=== PATIENT | male | born 2005 | race Caucasian/White ===

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

== ENCOUNTER 2025-04-06 17:09 | Emergency (ER) | payer SELFPAY ==
--- NOTE | 2025-04-06 17:06 | ECG_ITS ---
APPROVED REPORT Exam: Resting ECG HR:94 bpm ECG Measurements Heart Rate 94 AXES [place] 140 P 70 QRSd 88 QRS 83 QT 326 T 44 QTc 378 Conclusion SINUS RHYTHM POSSIBLE LEFT ATRIAL ENLARGEMENT [-0.1mV P-WAVE IN V1/V2] BORDERLINE ECG UNCONFIRMED REPORT Normal sinus rhythm. No ST elevation or depression. Electronically signed by : JENISE RODRIGUEZ, 04/07/2025 14:50:26
--- NOTE | 2025-04-06 17:13 | XR_ITS ---
FINAL REPORT CLINICAL HISTORY: SOB/CP COMPARISON: None FINDINGS: A single view of the chest was obtained. The heart size is normal. The mediastinum is normal. There is no focal infiltrate or edema. There are no pleural effusions. There is no pneumothorax. There is no osseous abnormality. IMPRESSION: No acute cardiopulmonary process. Reviewed, Interpreted and Dictated by Joe Maldonado MD Transcribed by Fabiana Warner Authenticated and [facility]
--- OUTSIDE RECORDS SUMMARY | 2025-04-06 17:13 | XMS_ITS | Encounter Summary ---
Author Organization [facility] Address [address] [place] [address] Care Team Providers Care Instructor Of Nursing Name Role Phone Shimon Joseph D.O. Primary Care Provider [phone]- [phone] Reason for Visit * Reason Onset Date Comments Results 07/03/2016 labs and urine Encounter Details Date Type Department Care Team (Late st Contact Info) Description 07/03/2016 Telephone [facility] Division of Pediatric Urology [address] [place] [phone] Magda Swartz R.N. Results (labs and urine) Social History Tobacco Use Types Packs/Day Years Used Date Smoking Tobacco: Never Alcohol Use Standard Drinks/Week Comments No 0 (1 standard drink = 0.6 oz pur e alcohol) Sex and Gender Information Value Date Recorded Sex Assigned at Not on file Legal Sex Male 5:34 AM EST Gender Identity Not on file Sexual Orientation Not on file documented as of this encounter Miscellaneous Notes * Telephone Encounter - Mari Rodriguez R.N. - 07/04/2016 1:33 PM EST Reviewed PNP message with mom . Mom will call back tomorrow for further results * Telephone Encounter - Rula Block RN, EMPLOYMENT TRAINING SPECIALIST - 07/04/2016 12:46 PM EST Cystatin C normal - UC still in process; will have Dr Karimi review microalbumin, creatinine and protein/creatinine random values for any further testing needed. * Telephone Encounter - Mari Rodriguez R.N. - 07/04/2016 12:35 PM EST Calling for urine and blood results. Will send to [facility] for review * Telephone Encounter - Mari Rodriguez R.N. - 07/04/2016 12:35 PM EST ----- Message from Quyen Monaco sent at 07/04/2016 11:26 AM EST ----- Contact: Amanda (mom) [phone] Patient of Scott, had blood work and urine tests done yesterday, needs to get results * Telephone Encounter - Adelita Ordoñez R.N. - 07/04/2016 11:06 AM EST Urine culture remains in process * Telephone Encounter - Magda Swartz R.N. - 07/03/2016 1:30 PM EST Reviewed normal ua result with mom. Awaiting final results. documented in this encounter Plan of Treatment Not on file documented as of this encounter Visit Diagnoses Not on filedocumented in this encounter Care Teams Instructor Of Nursing Relationship Specialty Start Date End [place] [address] PCP - General External Family Practice 06/08/21 documented as of this encounter
--- OUTSIDE RECORDS SUMMARY | 2025-04-06 17:13 | XMS_ITS | Clinical Summary ---
Author Organization [facility] Address [address] [place] [address] Care Team Providers Care Motion Picture Critic Name Role Phone Shimon Joseph D.O. Primary Care Provider [phone]- [phone] Source Comments [facility] is fully rolled out with thefollowing exceptions:[facility] Allergies No known active allergies Medications montelukast (SINGULAIR) 10 MG tablet Take 1 Tab by mouth every 24 hours. Active raNITIdine (ZANTAC) 15 MG/ML syrupIndication s:Congenital ureterocele,Sharmin itary kidney 5 mL 2 times a day. Active cetirizine (ZyrTEC) 10 MG tabletIndicatio ns:Congenital ureterocele,Sharmin itary kidney,Periumbi lical abdominal pain Take 10 mg by mouth. 10/17/2016 Active lisinopril (PRINIVIL) 10 MG tablet Take 10 mg by mouth. 09/17/2019 Active hyoscyamine (LEVSIN SL) 0.125 MG sublingual tabletIndicatio ns:Epigastric pain Place 1 Tab (0.125 mg total) under the tongue every 4-6 hours as needed for cramping or see PRN comment (for pain). 30 Tab 2 10/27/2019 Active omeprazole (PriLOSEC) 40 MG delayed release capsule Take 1 Cap (40 mg total) by mouth 1 time a day. Granules should not be chewed or crushed. 30 Cap 3 10/27/2019 Active polyethylene glycol 3350 (MIRALAX) powder Take 1 Cap (17 gm total) by mouth every 24 hours. 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 Immunizations Immunization Administration Dates Next Due Influenza A (H1N1) Vaccine Nasal 05/04/2010 Influenza Vaccine 0.5 mL - f or patients 6 months and older 06/30/2019 Family History Medical History Relation Name Comments Stomach Ulcer Father Other Maternal Aunt Asthma Maternal Grandfather Anesth Problems Maternal Grandmother Cancer Maternal Grandmother Diabetes Maternal Grandmother Gastroesophageal reflux Maternal Grandmother Stomach Ulcer Maternal Grandmother Other Maternal Uncle 1 solitary ki dney Cancer Maternal Uncle 2 Abdominal Surgery in Childhood Mother Gastroesophageal reflux Mother Inflammatory Bowel Disease Mother Intestinal Polyps Mother Irritable Bowel Syndrome Mother Stomach Ulcer Mother Anemia Other cousin Asthma Paternal Grandfather Cancer Paternal Grandfather Liver Disease Paternal Grandfather Cancer Paternal Grandmother Diabetes Paternal Grandmother Relation Name Status Comments Father Maternal Aunt Maternal Grandfather Maternal Grandmother Maternal Uncle 1 Alive Maternal Uncle 2 Alive Mother Other Paternal Grandfather Paternal Grandmother Social History Tobacco Use Types Packs/Day Years Used Date Smoking Tobacco: Never Smokeless Tobacco: Never Alcohol Use Standard Drinks/Week Comments No 0 (1 standard drink = 0.6 oz pur e alcohol) Intimate Partner Violence Answer Date R ecorded If you are in a relationship , do you feel safe in that relationship? Yes 10/27/2019 Safe in relationship? (18 and older) Not on file 10/27/2019 Safety and Environment Answer Date Paxton rded Do you have any concerns of physical abuse, sexual abuse, or neglect of your child? No 10/27/2019 Is an adult hurting you or your family? No 10/27/2019 Has someone ever touched you in a sexual way that was not ok with you? No 10/27/2019 Someone hurting you or family (18 and older) Not on file 10/27/2019 Historical abuse worry Not on file 0 If you have firearms in the home, are they all in locked storage AND unloaded? Not on file 10/27/2019 Sex and Gender Information Value Date Recorded Sex Assigned at Not on file Legal Sex Male 5:34 AM EST Gender Identity Not on file Sexual Orientation Not on file Last Filed Vital Signs Vital Sign Reading Time Taken Comments Blood Pressure 131/58 10/27/2019 1:56 PM EDT Pulse 100 10/27/2019 1:56 PM EDT Temperature 36.9 C (98.4 F) 04/11/2019 12:34 PM EDT Respiratory Rate 22 04/11/2019 12:34 PM EDT Oxygen Saturation - - Inhaled Oxygen Concentration - - Weight 54.1 kg (119 lb 4.3 oz) 10/27/2019 1:56 P M EDT Height 156.5 cm (5' 1.61 ) 10/27/2019 1:56 PM ED T Body Mass Index 22.09 10/27/2019 1:56 PM EDT Plan of Treatment Health Maintenance Due Date Last Done Comments MENINGOCOCCAL B VACCINE (2 of 2 - Trumenba SCDM 2-dose series) 05/19/2021 11/16/2020 COVID-19 Vaccine ( season) 2024 AMB SEASONAL FLU VACCINE (#1) 06/20/2025 05/17/2021, 06/30/2019, 04/15/2019, Additional history exists DTAP/Tdap/Td IMMUNIZATION (7 - Td or Tdap) 02/24/2026 02/25/2016, 06/16/2015, 08/23/2005, Additional history exists PNEUMOCOCCAL IMMUNIZATION Aged Out 2004, 2004, 2004, Additional history exists No longer eligible based on patient's age to complete this topic HIB IMMUNIZATION Completed 08/23/2005, 05/2005, 2004, Additional history exists HPV IMMUNIZATION Completed 01/08/2018, 02/25/2016 HEPATITIS A IMMUN (OPTIONAL 2-17 YRS) Discontinued 07/29/2018, 01/08/2018 HEPATITIS B IMMUNIZATION Completed 018, 2004, 2004, Additional history exists IPV IMMUNIZATION Completed 07/29/2018, 05/2005, 2004, Additional history exists MMR IMMUNIZATION Completed 07/29/2018, 08/23/2005 VARICELLA IMMUNIZATION Completed 07/29/2018, 2004 MCV4 IMMUNIZATION Completed 11/16/2020, , 06/16/2015 Respiratory Syncytial Virus (RSV) <20mo Aged Out No longer eligible based on patient's age to complete this topic [facility] Care Teams Motion Picture Critic Relationship Specialty Start Date End Date Shimon Joseph D.O. [address] [address] PCP - General External Family Practice 06/08/21
--- NOTE | 2025-04-06 17:15 | ED_ITS ---
<Statement entered by Jacky Ledezma MD - 04/07/25 14:40> I was consulted by the LORETTA, and we discussed the complexity of the problems being addressed. I approve the treatment and management plan for this patient's care in the emergency department, thus performing a substantive portion of the medical decision making. Jacky Ledezma MD Discharge Plan Disposition Patient Disposition: Home, Self-Care Condition: Good Prescriptions Prescriptions: No Action ondansetron 4 mg tablet,disintegrating 4 mg PO Q8H PRN (Reason: nausea and vomiting) Qty: 10 0RF Referrals Follow up/Referrals: Shimon Joseph [Primary Care Provider, Medical] - See instructions Ottoniel Martinez DO [Staff Physician, Family Practice] - See instructions Activity Restrictions/Add. Instructions Additional Instructions/Restrictions: Please follow-up with your PCP in the upcoming days/weeks, please return to the emergency room with any worsening signs or symptoms, to include worsening shortness of breath, worsening chest pain, please utilize ibuprofen and Tylenol as needed for your symptoms. Clinical Impressions Clinical Impression: Atypical chest pain Stand Alone Forms Stand Alone Forms: Work/School Release Instructions Patient Instructions: DI for Atypical Chest Pain Print Language Print Language: Yakut Discharge ED Provider: Jacky Ledezma General Adult HPI General Chief complaint: Chest Pain Stated complaint: Chest Pain Time Seen by Provider: 04/06/25 17:11 Mode of Arrival: Ambulatory Source of Information: Patient Limitations: No Limitations History of Present Illness HPI narrative: 19-year-old male presents emergency department with right-sided substernal chest pain with some radiation into his right arm he endorses numbness and tingling , to the right arm, pain started around 2 hours ago while the patient was at work , patient states he was exerting himself, he states he was lifting boxes , as patient works at [employer]. Patient describes his initial chest pain episode as a 6 out of 10, currently a 4 out of 10, denies any fever chills cough congestion, does state that he recently got over a sinus infection , denies any shortness of breath, denies abdominal pain nausea vomiting constipation diarrhea, no urinary type otology, patient denies any alcohol tobacco or drug use, initial triage vitals are grossly unremarkable. Patient has no other real relevant past medical history takes no other medications at home. Please note that above description of symptoms, in this electronic medical record under categorization of recalled from ER triage doctor by RN are reflective of an initial nursing assessment, however, is not reflective of my full history and physical exam that was personally taken and clarified. Consequentially, this preceding description of symptoms, which may include the patient's categorized chief complaint in the EMR, do not reflect my personal clinical impression, and the ultimate description of history of present illness and patient stated complaints should be deferred to this section of the note. Unless stated otherwise or congruent with this section of the note, additional signs, symptoms, or incongruence should be interpreted as inaccurate with my clinical impression. Onset (ago): hour(s) Related Data Previous Rx's ?Medication ?Instructions ?Recorded ondansetron 4 mg disintegrating 4 mg PO Q8H PRN nausea and 11/08/24 tablet vomiting #10 tabs Allergies Allergy/AdvReac Type Severity Reaction Status Date / Time prednisone Allergy Verified 11/08/24 18:10 [facility] Disclaimer: The information contained in this section may have been updated after the patient was seen, as this information can be updated by other users. Medical History (Updated 04/06/25 @ 21:04 by LY Puga) Atypical chest pain Abdominal pain Chest pain Surgical History No significant past surgical history Family History Family/Other No significant family history Social History Smoking Status: Never smoker alcohol intake: never current occupational status: employed Travel in the last 8 weeks?: None Have you lived/traveled outside [place] in past 30 days?: No Contact w/someone who lives/traveled outside US past 30 days?: No Exposure to someone with infectious disease in past 14 days?: No Do you have a fever (greater than 100.4 F or 38 C)?: No Have you tested positive for COVID-19?: No Exposed to someone with COVID-19 in past 14 days?: No Do you have a sore throat?: No Do you have a cough?: No Do you have any weakness?: No Do you have any diarrhea?: No Are you experiencing any unusual bleeding?: No Do you have any muscle aches/pain?: No Do you have any abdominal pain?: No Are you experiencing loss of taste or smell?: No Other Medical History Have you received the Flu Vaccine for this season: No Have you received the Pneumonia Vaccine: No ROS Obtained: Yes All systems reviewed & no additional complaints except as documented Physical Exam General General appearance: alert and in no apparent distress Head Head exam: atraumatic and normocephalic Eye Eye exam: Present PERRL and EOMI ENT ENT exam: Present mucous membranes moist Neck Neck exam: Present normal inspection Chest Chest inspection: Present normal inspection and symmetric chest wall rise; Absent tenderness Respiratory Respiratory exam: Present normal lung sounds bilaterally; Absent respiratory distress Cardiovascular Cardiovascular exam: Present regular rate and normal rhythm Abdominal Exam Abdominal exam: Present soft; Absent tenderness, guarding, rebound or rigidity Extremities Exam Extremities exam: Present normal inspection Neurological Exam Neurological exam: Present alert and oriented X3 Psychiatric Psychiatric exam: Present normal affect Skin Skin exam: Present warm and dry Medical Decision Making Medical Records Medical records reviewed: Yes I reviewed the patient's medical records. Screening: Per USPSTF and CDC recommendations, given the prevalence of disease in our region, it is our hospital?s policy to screen for HIV and viral Hepatitis for all patients aged 18 and over and those with ongoing risk factors. Jerome Inquiry Pt receiving controlled substance: No Jerome was queried for this patient: No Vital Signs: 04/06/25 17:18 04/06/25 17:18 Temperature 98.9 F 98.9 F Temperature Source Oral Pulse Rate 87 Pulse Rate [Right] 87 Respiratory Rate 18 18 Blood Pressure 102/72 L Blood Pressure [Right Arm] 102/72 L Blood Pressure Mean [Right Arm] 82 02 Sat by Pulse Oximetry 98 98 Oxygen Delivery Method Room Air Lab Data Lab results reviewed: Yes I reviewed the patient's lab results. Lab Results 04/06/25 17:25: WBC 15.2 H, RBC 4.95, Hgb 14.3, Hct 41.2 L, MCV 83.2, MCH 28.9, MCHC 34.7, RDW 12.4, Plt Count 282, MPV 10.1, Neut % (Auto) 81.5 H, Lymph % (Auto) 11.2, Heard % (Auto) 6.6, Eos % (Auto) 0.1, Baso % (Auto) 0.3, Neut # (Auto) 12.4 H, Lymph # (Auto) 1.7, Heard # (Auto) 1.0, Eos # (Auto) 0.0, Baso # (Auto) 0.0, PT 10.7, INR 0.96, D-Dimer 0.80 H, Sodium 138, Potassium 3.5, Chloride 103, Carbon Dioxide 25, Anion Gap 13.5, BUN 11, Creatinine 0.90, Estimated Creat Clear 105, Estimated GFR 108, Est GFR ( Amer) 130, G lucose 101 H, Calcium 9.4, Total Bilirubin 0.5, AST 35, ALT 31, Alkaline Phosphatase 58, Troponin I < 0.01, NT-Pro-B Natriuret Pep 43.0, Total Protein 8.3 H, Albumin 5.1 H, Globulin 3.2, Albumin/Globulin Ratio 1.6, Lipase 28 04/06/25 20:15: Troponin I < 0.01 04/06/25 17:25 04/06/25 17:25 Orders (Tests/Meds): ED MEDICATIONS Discontinued Medications Generic Name Dose Route Start Last Admin Trade Name Gioq PRN Reason Stop Dose Admin Aspirin 325 mg 04/06/25 17:16 04/06/25 18:30 Aspirin 325mg Tablet PO 04/06/25 17:17 325 mg ONCE ONE Administration Diphenhydramine HCl 25 mg 04/06/25 18:51 04/06/25 18:53 Diphenhydramine 50mg/Ml Vial IV 04/06/25 18:52 25 mg ONCE ONE Administration Morphine Sulfate 2 mg 04/06/25 17:25 04/06/25 18:30 Morphine 2mg/Ml Syringe IV 04/06/25 17:26 2 mg ONCE ONE Administration Ondansetron HCl 4 mg 04/06/25 17:26 04/06/25 18:30 Ondansetron 4mg/2ml Vial IV 04/06/25 17:27 4 mg ONCE ONE Administration ORDERS Category Date Time Status XR chest portable Stat Exams 04/06/25 17:13 Taken Complete Blood Count Auto Diff Stat Lab 04/06/25 17:25 Completed Comprehensive Metabolic Panel Stat Lab 04/06/25 17:25 Completed D-Dimer Stat Lab 04/06/25 17:25 Completed Lipase Stat Lab 04/06/25 17:25 Completed NT Pro Brain Natriuretic Pep. Stat Lab 04/06/25 17:25 Completed PT INR [Prothrombin Time INR] Stat Lab 04/06/25 17:25 Completed Troponin I Q3H Lab 04/06/25 20:15 Completed Troponin I Q3H Lab 04/06/25 23:15 Ordered Troponin I Stat Lab 04/06/25 17:25 Completed Medical Decision Narrative: 19-year-old male presents emergency room with chest pain, differential diagnose include but not limited to, ACS, cardiac arrhythmia, electrolyte disturbance, costochondritis, pneumonia, pneumothorax, other musculoskeletal chest pain, PE, among others. I discussed the patient case with the attending physician Dr. Ledezma Will obtain basic laboratory studies, D-dimer, lipase, proBNP, PT/INR, troponin, chest x-ray and EKG, will give 325 mg p.o. aspirin, will give 2 mg IV morphine for pain and 4 mg of Zofran nausea. CMP unremarkable, lipase in normal limits CBC is notable for mild leukocytosis of 15.2 otherwise unremarkable PT INR within normal limits Initial troponin is less than 0.01/within normal limits Of note, I was notified by nursing staff after patient received IV morphine 2 mg, he did develop somewhat of a rash that was blanchable at the bedside around his right arm/IV insertion site, patient does not have documented allergy to any medications, except for prednisone, will give the patient IV Benadryl 25 mg. D-dimer is mildly elevated at 0.8,, however utilizing years criteria, PE is excluded. Repeat troponin is less than 0.01. Reexamination of the patient at approximately 8:55 PM, patient is resting comfortably in bed, was sleeping after Benadryl administration, rash is improved, chest pain is improved 0 out of 10 chest pain, heart score of 0, patient is clear to be discharged home to self-care, could be costochondral, versus other atypical chest pain, troponins are negative, white count could be due to with the patient's chest pain, or recovering from sinus infection/URI, patient, I along with the attending physician reviewed and independently interpreted the patient's chest x-ray, no acute cardiopulmonary findings. Patient given strict ED return precautions with follow-up with PCP in the upcoming days. Patient voiced understanding agree with the current plan/discharge plan. Critical Care Critical Care Time Critical Care Time: No
[2025-04-06 17:18] VITALS: BP 102/72; PULSE 87; RESP 18; TEMP 37.2; O2SAT 98; BMI 21.4
[2025-04-06 17:33] LABS: Hematocrit 41.2 % (42.0-52.0); Hemoglobin 14.3 g/dL (14.1-18.0); Immature Granulocytes % 0.3 %; Mean Corpuscular HGB Conc 34.7 g/dL (31.8-35.4); Mean Corpuscular Hemoglobin 28.9 pg (27.0-31.2); Mean Corpuscular Volume 83.2 fl (80-94); Nucleated Red Blood Cells % 0 %; Platelet Count 282 K/mm3 (142-424); Red Blood Count 4.95 M/mm3 (4.60-6.20); Red Cell Distribution Width-SD 38.0 fL; White Blood Count 15.2 K/mm3 (4.5-13.0)
[2025-04-06 17:40] LABS: Albumin Level 5.1 g/dl (3.5-5.0); Chloride 103 mmol/L (98-107); Potassium 3.5 mmoL/L (3.5-5.1); Sodium 138 mmol/L (136-145)
[2025-04-06 17:42] LABS: Alanine Aminotransferase 31 U/L (12-78); Albumin/Globulin Ratio 1.6 (1.1-1.8); Alkaline Phosphatase 58 U/L (38-126); Anion Gap 13.5 mEq/L (5-15); Aspartate Amino Transferase 35 U/L (17-59); Bilirubin,Total 0.5 mg/dl (0.2-1.3); Blood Urea Nitrogen 11 mg/dl (9-20); Carbon Dioxide 25 mmol/L (22.0-30.0); Creatinine Clearance Estimated 105 mL/min (50-200); Creatinine,Serum 0.90 mg/dl (0.66-1.25); Estimated Glomerular Filt Rate 108 ml/min (>60); GFR (African American) 130 ML/MIN (>60); Globulin 3.2 g/dL (1.3-3.2); Total Protein,Serum 8.3 g/dl (6.3-8.2)
[2025-04-06 17:43] LABS: Calcium 9.4 mg/dl (8.4-10.2); Glucose 101 mg/dl (74-100); Lipase 28 U/L (23-300)
[2025-04-06 17:52] LABS: NT Pro Brain Natriuretic Pep. 43.0 pg/mL (0-125)
[2025-04-06 18:10] LABS: INR 0.96 (0.9-1.1); Prothrombin Time 10.7 seconds (10.1-12.5)
[2025-04-06 18:12] LABS: Troponin I < 0.01 ng/ml (0.00-0.034)
[2025-04-06] MEDS: ONDANSETRON 4MG/2ML VIAL 4 MG IV (18:30)
[2025-04-06] MEDS: MORPHINE 2MG/ML SYRINGE 2 MG IV (18:30)
[2025-04-06] MEDS: ASPIRIN 325MG TABLET 325 MG PO (18:30)
[2025-04-06 18:59] LABS: D-Dimer 0.80 ug/mL (0.0-0.5)
[2025-04-06 20:50] LABS: Troponin I < 0.01 ng/ml (0.00-0.034)
[2025-04-06 21:08] VITALS: BP 102/72; PULSE 87; RESP 20; TEMP 36.7; O2SAT 98
== END 2025-04-06 21:09 | disposition home or self-care (01) ==
PROVIDERS: Physician Assistant; Emergency Provider Student in an Organized Health Care Education/Training Program; PCP Family Medicine
DX: R07.9 Chest pain, unspecified (principal); R20.2 Paresthesia of skin
CPT/HCPCS: 71045; 80053; 83690; 83880; 84484; 85025; 85378; 85610; 93005; 96374; 96375; 99283; 99285; J1200; J2270; J2405

== ENCOUNTER 2025-04-09 22:47 | Emergency (ER) | payer SELFPAY ==
[2025-04-09 22:55] VITALS: BP 128/77; PULSE 89; RESP 18; TEMP 36.7; O2SAT 99; BMI 21.4
--- OUTSIDE RECORDS SUMMARY | 2025-04-09 22:55 | XMS_ITS | Clinical Summary ---
Author Organization [facility] Address [address] [place] [address] Phone Care Team Providers Care Spring Tier Name Role Phone Unavailable Primary Care Provider Unavailabl e Allergies No known active allergies Medications montelukast (SINGULAIR) 5 mg Oral Tablet, ChewableIndicati ons:Allergic dermatitis Take 1 Tab by mouth every evening. 30 Tab 5 1 Active Additional Information Patient not taking.Reported on 06/14/2024 cetirizine (ZYRTEC) 10 mg Oral TabletIndication s:Allergic dermatitis Take 1 Tab by mouth daily. 30 Tab 5 1 Active Additional Information Patient not taking.Reported on 06/14/2024 omeprazole (PRILOSEC) 20 mg Oral Capsule, Delayed Release(E.C.)Ind ications:Gastroe sophageal reflux disease, unspecified whether esophagitis present Take 1 Capsule by mouth daily. 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 Immunizations Immunization Administration Dates Next Due DTaP 08/23/2005, 5,2004,07/22 DTaP, Unspecified Formulation 08/23/2005, 005 DTaP/Hep B/IPV 2004,2004 HPV 9 Valent 01/08/2018,02/25/2016,02/25/2016 Hepatitis A, Ped/Adol, 2 Dose 07/29/2018, 018 Hepatitis B, Ped/Adol 07/29/2018 Hepatitis B, Unspecified Formulation 2004, 2004 HiB (PRP-OMP) 08/23/2005,2004,2004 HiB, Unspecified Formulation 08/23/2005, 2004,2004,07/22 IPV 07/29/2018, 5,2004,07/22 Influenza Patient Reported 05/04/2010 Influenza Vaccine Quadrivalent 05/13/2018,2014 Influenza Vaccine Quadrivalent PF 05/17/2021 LAST MANUFACTURED 2011-Pneum ococcal Conjugate 7 Valent 05/31/2005,05/31/2005,2004,12/27,2004,2004,2004 ,2004 MMR 08/23/2005 MMRV 07/29/2018 Meningococcal B, Recombinant 11/16/2020 Meningococcal Conjugate 11/16/2020,02/25/2016, Meningococcal MCV4, Unspecif ied Formulation 02/25/2016 Tdap 02/25/2016,06/16/2015 Varicella 05/31/2005 Surgical History Surgery Date Site/Laterality Comments TONSILLECTOMY ADENOIDECTOMY TYMPANOSTOMY TUBE PLACEMENT DENTAL SURGERY Medical History Medical History Date Comments Congenital absence of right kidney 2015 Family History Medical History Relation Name Comments Heart Disease Father Mental Illness Father Cancer Maternal Grandfather Heart Disease Maternal Grandfather Cancer Maternal Grandmother Hearing Loss Maternal Grandmother Heart Disease Maternal Grandmother Migraines Maternal Grandmother Allergies Mother Anxiety Disorder Mother Migraines Mother Cancer Paternal Grandfather Heart Disease Paternal Grandfather Cancer Paternal Grandmother Heart Disease Paternal Grandmother Thyroid Disease Paternal Grandmother Allergies Sister Hearing Loss Sister Bleeding Prob Neg Hx Relation Name Status Comments Father Alive Maternal Grandfather Maternal Grandmother Mother Alive Paternal Grandfather Paternal Grandmother Sister Social History Tobacco Use Types Packs/Day Years Used Date Smoking Tobacco: Never Smokeless Tobacco: Never Tobacco Cessation:Counseling Given: No Alcohol Use Standard Drinks/Week Comments Not Asked 0 (1 standard drink = 0.6 oz pur e alcohol) PHQ-2 Answer Date Recorded PHQ-2 Score 0 09/24/2019 Sex and Gender Information Value Date Recorded Sex Assigned at Not on file Legal Sex Male 9:10 PM EDT Gender Identity Not on file Sexual Orientation Not on file Obstetrics History Last Filed Vital Signs Vital Sign Reading Time Taken Comments Blood Pressure 129/73 06/14/2024 11:15 AM EDT Pulse 78 06/14/2024 11:09 AM EDT Temperature 36.8 C (98.3 F) 06/14/2024 11:14 AM EDT Respiratory Rate 16 06/14/2024 11:09 AM EDT Oxygen Saturation 98% 06/14/2024 11:09 AM EDT Inhaled Oxygen Concentration - - Weight 58.5 kg (129 lb) 12/29/2021 10:15 AM EDT Height 162.6 cm (5' 4 ) 12/29/2021 10:15 AM EDT Body Mass Index 22.14 12/29/2021 10:15 AM EDT Plan of Treatment Health Maintenance Due Date Last Done Comments Annual Wellness Exam 2007 Meningococcal B Vaccine (2 of 2 - Trumenba SCDM 2-dose series) 05/19/2021 11/16/2020 COVID-19 Vaccine ( - season) 2024 Influenza Vaccine (#1) 2025 , 06/30/2019, 04/15/2019, Additional history exists DTaP/TDaP/Td (7 - Td or Tdap) 02/24/2026 02/25/2016, 06/16/2015, 08/23/2005, Additional history exists Pneumococcal Vaccine 0-49 Aged Out 2004, 05/31/2005, 2004, Additional history exists No longer eligible based on patient's age to complete this topic HPV Completed 01/08/2018, 03/2016, 02/25/2016 Hepatitis B Vaccine Completed 07/29/2018, 2004, 2004, Additional history exists Goals Goal Patient Goal Type Associated Problems Recent Progress Patient-Stated? Author Maintain a healthy diet, exercise regularly and maintain an ideal body weight General No Sue Goodman, A Insurance [facility] [address] [place] [address] [address] [facility] [address] [facility] [place] [address]
--- NOTE | 2025-04-09 23:07 | HMH.EDGENADL ---
Discharge Plan Disposition Patient Disposition: Home, Self-Care Condition: Good Prescriptions Prescriptions: New ondansetron 4 mg tablet,disintegrating 4 mg PO Q6H PRN (Reason: nausea and vomiting) Qty: 8 0RF guaifenesin 400 mg tablet 400 mg PO TID PRN (Reason: congestion, cough) Qty: 10 0RF No Action ondansetron 4 mg tablet,disintegrating 4 mg PO Q8H PRN (Reason: nausea and vomiting) Qty: 10 0RF Referrals Follow up/Referrals: Shimon Joseph [Primary Care Provider, Medical] - See instructions Activity Restrictions/Add. Instructions Additional Instructions/Restrictions: You were evaluated in the ER and are believed to be appropriate for discharge at this time. Take the prescribed guaifenesin as needed for cough. Take the prescribed ondansetron (Zofran) as needed for nausea and vomiting. Drink plenty of water, Gatorade, Pedialyte to maintain good hydration. Get extra sleep and rest and recover. For nasal congestion I recommend taking Claritin or Zyrtec [id number] medications for the next week to help reduce congestion and postnasal drip. Make an appointment with your primary care doctor for reevaluation in 2 to 3 days. Return to the ER with any new, worsening, or otherwise concerning symptoms. Clinical Impressions Clinical Impression: Cough, Nasal congestion, Post-tussive emesis Stand Alone Forms Stand Alone Forms: Work/School Release Instructions Patient Instructions: DI for Diarrhea and Traveler's Diarrhea -- Adult, DI for Diarrhea and Traveler's Diarrhea -- Child, DI for Nausea -- Adult, DI for Nausea -- Child Print Language Print Language: Martiniquais Discharge ED Provider: Bryon Starr General Adult HPI General Chief complaint: Nausea/Vomiting/Diarrhea Stated complaint: Vomiting,cough,stuffy nose Time Seen by Provider: 04/09/25 22:58 Mode of Arrival: Ambulatory Source of Information: Patient and Relative Description of Symptoms (Recalled from ER Triage Doc. by RN): PT presents to the ED for evaluation of cough, congestion, and N/V. PT stated he has had a cough since 04/06/2025. PT stated he has been vomiting every time he eats. Took Nyquil at 1300 on this date. History of Present Illness HPI narrative: 19-year-old male presents to the ER complaining of 3 days of congestion, cough, and posttussive emesis. He and family at bedside report that his symptoms started with congestion a few days ago and progressed to the cough and posttussive emesis that he presents with today. Patient took NyQuil earlier today to get some rest. He has been able to tolerate oral intake of fluids but has had emesis with eating and after coughing. He has no abdominal pain, diarrhea, constipation, chest pain, difficulty breathing, headache, dizziness, numbness, tingling, weakness, fever, or chills. He reports he does not want to be swabbed for COVID because every time he is swabbed his nose bleeds. He has not taken any medications for nausea. Related Data Previous Rx's ?Medication ?Instructions ?Recorded ondansetron 4 mg disintegrating 4 mg PO Q8H PRN nausea and 11/08/24 tablet vomiting #10 tabs guaifenesin 400 mg tablet 400 mg PO TID PRN congestion, 04/09/25 cough #10 tabs ondansetron 4 mg disintegrating 4 mg PO Q6H PRN nausea and 04/09/25 tablet vomiting #8 tabs Allergies Allergy/AdvReac Type Severity Reaction Status Date / Time prednisone Allergy Verified 11/08/24 18:10 [facility] Disclaimer: The information contained in this section may have been updated after the patient was seen, as this information can be updated by other users. Medical History (Updated 04/09/25 @ 23:04 by Bryon Starr MD) Atypical chest pain Abdominal pain Chest pain Surgical History No significant past surgical history Family History Family/Other No significant family history Social History Smoking Status: Never smoker alcohol intake: never current occupational status: employed Travel in the last 8 weeks?: None Have you lived/traveled outside [place] in past 30 days?: No Contact w/someone who lives/traveled outside [place] past 30 days?: No Exposure to someone with infectious disease in past 14 days?: No Do you have a fever (greater than 100.4 F or 38 C)?: No Have you tested positive for COVID-19?: No Exposed to someone with COVID-19 in past 14 days?: No Do you have a sore throat?: No Do you have a cough?: No Do you have any weakness?: No Do you have any diarrhea?: No Are you experiencing any unusual bleeding?: No Do you have any muscle aches/pain?: No Do you have any abdominal pain?: No Are you experiencing loss of taste or smell?: No Other Medical History Have you received the Flu Vaccine for this season: No Have you received the Pneumonia Vaccine: No ROS Obtained: Yes Systems reviewed as appropriate & no additional complaints except as documented Per HPI Physical Exam General General appearance: alert and in no apparent distress Head Head exam: atraumatic and normocephalic Eye Eye exam: Present PERRL and EOMI ENT ENT exam: Present mucous membranes moist and other (Mildly erythematous posterior oropharynx with no tonsillomegaly, no exudates, no lymphadenopathy) Neck Neck exam: Present normal inspection and full ROM; Absent lymphadenopathy Chest Chest inspection: Present symmetric chest wall rise Respiratory Respiratory exam: Present normal lung sounds bilaterally and other (Saturating 99% on room air); Absent respiratory distress, wheezes or stridor Cardiovascular Cardiovascular exam: Present regular rate and normal rhythm Abdominal Exam Abdominal exam: Present soft; Absent distention or tenderness Extremities Exam Extremities exam: Present full ROM Neurological Exam Neurological exam: Present alert and oriented X3; Absent motor sensory deficit Psychiatric Psychiatric exam: Present normal affect and normal mood Skin Skin exam: Present warm and dry Medical Decision Making Medical Records Medical records reviewed: Yes I reviewed the patient's medical records. Screening: Per USPSTF and CDC recommendations, given the prevalence of disease in our region, it is our hospital?s policy to screen for HIV and viral Hepatitis for all patients aged 18 and over and those with ongoing risk factors. Jerome Inquiry Pt receiving controlled substance: No Vital Signs: 04/09/25 22:55 Temperature 98.1 F Temperature Source Oral Pulse Rate [Right] 89 Respiratory Rate 18 Blood Pressure [Right Arm] 128/77 Blood Pressure Mean [Right Arm] 94 02 Sat by Pulse Oximetry 99 Oxygen Delivery Method Room Air Orders (Tests/Meds): ED MEDICATIONS Discontinued Medications Generic Name Dose Route Start Last Admin Trade Name Freq PRN Reason Stop Dose Admin Ondansetron HCl 4 mg 04/09/25 23:03 Ondansetron 4mg Odt SL 04/09/25 23:04 ONCE ONE ORDERS Category Date Time Status HIV Combo Stat Lab 04/09/25 22:59 Ordered Hepatitis C Ab Qual. W/ RFX Stat Lab 04/09/25 22:59 Ordered Medical Decision Narrative: In summary, otherwise healthy 19-year-old male presents to the ER with complaints of congestion, cough, posttussive emesis. Differential diagnosis includes but is not limited to viral syndrome, pharyngitis, posttussive emesis, postnasal drip, I considered the possibility of pneumonia though I have low suspicion for this since patient has no fever, chest pain, hypoxia, or difficulty breathing and has only been ill for the last few days. On initial evaluation patient is hemodynamically stable, afebrile, overall well-appearing, moist mucous membranes, no evidence of dehydration, lungs clear bilaterally with no adventitious sounds, saturating well on room air. Remainder of exam benign. I considered performing chest x-ray but with extremely low pretest probability for pneumonia I believe the risk of radiation outweighs the benefit and will not perform the study at this time. I offered swab for viral testing which patient refused stating that every time he is swabbed he ends up with a nosebleed. I believe this is reasonable. Patient received Zofran in the ER and this was provided as a prescription for outpatient management as well. Additionally I gave a prescription for guaifenesin. I also gave him instructions to take an [id number] antihistamine like Zyrtec or Claritin to help with congestion and postnasal drip. Patient was given instructions on symptomatic management, follow up instructions, and return precautions for the emergency department. Patient indicated understanding and was discharged in stable condition. Critical Care Critical Care Time Critical Care Time: No
[2025-04-09] MEDS: ONDANSETRON 4MG ODT 4 MG SL (23:12)
[2025-04-09 23:14] VITALS: BP 124/77; PULSE 86; RESP 16; TEMP 36.9; O2SAT 98
== END 2025-04-09 23:15 | disposition home or self-care (01) ==
PROVIDERS: Emergency Provider Emergency Medicine; PCP Family Medicine
DX: R11.10 Vomiting, unspecified (principal); R09.81 Nasal congestion
CPT/HCPCS: 99283; Q0162